=== PATIENT | female | born 1940 ===

== ENCOUNTER 2021-02-10 13:11 | Emergency (ER) ==
[2021-02-10 13:43] VITALS: Ht 165.1 cm; Wt 50.0 kg
[2021-02-10 14:41] LABS: CALC OSMOLALITY 278 mosm/kg (275-300); CALCIUM 9.7 mg/dL (8.5-10.1); CARBON DIOXIDE 29.4 mmol/L (21.0-32.0); CHLORIDE - SERUM 102 mmol/L (98-107); CREATININE - SERUM 0.8 mg/dL (0.6-1.3); GLUCOSE 117 mg/dL (74-106); POTASSIUM - SERUM 4.1 mmol/L (3.5-5.1); SODIUM 139 mmol/L (136-145); UREA NITROGEN 12 mg/dL (7-18); eGFR NON AFRICAN AMERICAN 72 mL/min (90-120)
[2021-02-10 14:43] LABS: BASOPHILS 0.5 % (0-2); EOSINOPHILS 0.4 % (0-7); HEMATOCRIT 40.5 % (36.0-48.0); HEMOGLOBIN 13.6 g/dL (12-16); LYMPHOCYTES 24.1 % (15-50); MCH 29.8 pg (26.0-34.0); MCHC 33.5 g/dL (31.0-37.0); MCV 88.9 fL (80.0-100.0); MEAN PLATELET VOLUME 7.4 fL (7.4-10.4); MONOCYTES 4.7 % (2-11); NEUTROPHILS 70.3 % (40-80); PLATELET COUNT 310 10x3/uL (130-400); RBC 4.55 10x6/uL (4.00-5.40); WBC 5.8 10x3/uL (4.8-10.8)
[2021-02-10 14:47] LABS: ALBUMIN 3.6 g/dL (3.4-5.0); ALKALINE PHOSPHATASE 100 U/L (30-120); ALT (SGPT) 11 U/L (10-68); AMYLASE - SERUM 123 U/L (25-115); BILIRUBIN - TOTAL 0.42 mg/dL (0.2-1.3); LIPASE 279 U/L (73-393)
[2021-02-10 14:48] LABS: TROPONIN-I < 0.017 ng/mL (0.000-0.060)
[2021-02-10 15:51] LABS: BILIRUBIN NEGATIVE (NEGATIVE); KETONE NEGATIVE mg/dL (< 1+); NITRITE NEGATIVE (NEGATIVE); PH 7.5 (5.0-8.0); SQUAMOUS EPITHELIAL <1 HPF (0-4); UROBILINOGEN NORMAL mg/dL (< 2); WHITE CELLS - URINE 1 HPF (0-4)
[2021-02-10] MEDS ORDERED: COLACE100 MG PO (21:00)
[2021-02-10] MEDS ORDERED: ULTRAM50 MG PO (21:00)
== END 2021-02-10 21:59 | disposition home or self-care (01) ==
LOC: D.ER 13:11
PROVIDERS: Emergency Medicine
DX: K59.00 Constipation, unspecified (principal); R10.9 Unspecified abdominal pain